=== PATIENT | male | born 1970 | race Caucasian/White ===

== ENCOUNTER 2018-12-27 12:35 | Inpatient (IN) | payer MEDICARE, OTHER ==
[~2018-12-27] VITALS: Ht 177.8 cm; Wt 82.8 kg
[~2018-12-27 12:35] MED LIST: ASPI-817 PO; BENZ1TAB7 PO; CHOL200056 PO; CITA20TA11 PO; DIAZ5TAB4 PO; DIVA-48 PO; HYDR-842 PO; KETO120S3 TOP; MES250 PO; QUET100T PO; QUET100T32 PO; QUET400T4 PO; QUET50TA PO
[2018-12-27] MEDS ORDERED: morphine 4 MG/ML VIAL IV STA (15:40)
[2018-12-27] MEDS ORDERED: ONDANSETRON 4 MG INJ IV STA (15:40)
[2018-12-27] MEDS ORDERED: SOD CHLORIDE 0.9% 1,000 ML IV STA (17:19)
[2018-12-27] MEDS ORDERED: ONDANSETRON 4 MG INJ IV PRN ×2 (17:30→18:30)
[2018-12-27] MEDS ORDERED: ACETAMINOPHEN 325 MG TAB PO PRN ×2 (17:30→18:30)
[2018-12-27] MEDS ORDERED: QUETIAPINE 25 MG TAB NGT PRN (18:30)
[2018-12-27] MEDS ORDERED: hydrOXYzine HCL 25 MG TAB PO PRN (18:30)
[2018-12-27] MEDS ORDERED: NACL 0.9% 3 ML SYG IV SCH (18:30)
[2018-12-27] MEDS: DIVALPROEX (EC) 500 MG TAB PO SCH (19:04)
[2018-12-27] MEDS: QUETIAPINE 100 MG TAB NGT SCH (19:04)
[2018-12-27] MEDS: BENZTROPINE 1 MG TAB NGT SCH (19:05)
[2018-12-27] MEDS: DEXTROSE 5%-0.45% NACL 1,000 ML IV SCH (21:19)
[2018-12-27] MEDS: FAMOTIDINE 20 MG INJ IV SCH (21:19)
[2018-12-27] MEDS: DIAZEPAM 5 MG TAB NGT SCH (21:47)
[2018-12-27] MEDS ORDERED: SOD CHLORIDE 0.9% 1,000 ML IV ONE (22:30)
[2018-12-28] MEDS: morphine 2 MG INJ IV PRN (02:15)
[2018-12-28] MEDS ORDERED: PANTOPRAZOLE 40 MG INJ IV SCH (08:00)
[2018-12-28] MEDS ORDERED: ACETAMINOPHEN 1000MG/100ML IV 100 ML IVPB ONE (08:00)
[2018-12-28] MEDS ORDERED: SOD CHLORIDE 0.9% 1,000 ML IV SCH ×2 (08:00→08:30)
[2018-12-28] MEDS: QUETIAPINE 100 MG TAB NGT SCH ×2 (09:00→20:31)
[2018-12-28] MEDS: BENZTROPINE 1 MG TAB NGT SCH ×2 (09:00→20:31)
[2018-12-28] MEDS: DIVALPROEX (EC) 500 MG TAB PO SCH ×2 (09:00→20:31)
[2018-12-28] MEDS: CITALOPRAM 20 MG TAB NGT SCH (09:00)
[2018-12-28] MEDS: DIAZEPAM 5 MG TAB NGT SCH ×2 (09:00→20:31)
[2018-12-28] MEDS ORDERED: MAGNESIUM SULFATE 2 GM/50 ML 50 ML IVPB ONE ×2 (10:30→16:00)
[2018-12-28] MEDS ORDERED: SOD CHLORIDE 0.9% 1,000 ML IV ONE ×2 (11:00→14:00)
[2018-12-28] MEDS: PIPER-TAZO 3.375 GM IV (PMX) 100 ML IVPB SCH ×3 (11:57→21:38)
[2018-12-28] MEDS: LORAZEPAM 2 MG INJ IV PRN (14:00)
[2018-12-28 16:35] VITALS: BP 98/53; PULSE 115; RESP 18
[2018-12-28 16:45] VITALS: Ht 177.8 cm; Wt 82.8 kg
[2018-12-28] MEDS: DEXTROSE 5%-0.45% NACL 1,000 ML IV SCH ×2 (18:58→19:10)
[2018-12-28 19:52] VITALS: BP 98/54; PULSE 60; RESP 19
[2018-12-28] MEDS: PANTOPRAZOLE IV 80 MG in SOD CHLORIDE 0.9% 100 ML IV SCH (20:21)
[2018-12-28] MEDS: FAMOTIDINE 20 MG INJ IV SCH (20:31)
[2018-12-28] MEDS: METHYLPREDNISOLONE 40 MG INJ IV SCH (21:38)
[2018-12-29] VITALS (7 sets, daily range): BP systolic 91–109; BP diastolic 51–62; PULSE 112–141; RESP 18–29
[2018-12-29] MEDS: DEXTROSE 5%-0.45% NACL 1,000 ML IV SCH ×2 (00:25→10:25)
[2018-12-29] MEDS ORDERED: SOD CHLORIDE 0.9% 500 ML IV ONE (04:30)
[2018-12-29] MEDS ORDERED: LORAZEPAM 2 MG INJ IV ONE (04:30)
[2018-12-29] MEDS: METHYLPREDNISOLONE 40 MG INJ IV SCH ×3 (05:00→21:14)
[2018-12-29] MEDS: PIPER-TAZO 3.375 GM IV (PMX) 100 ML IVPB SCH ×3 (05:08→21:14)
[2018-12-29] MEDS: PANTOPRAZOLE IV 80 MG in SOD CHLORIDE 0.9% 100 ML IV SCH ×2 (06:26→13:30)
[2018-12-29] MEDS: CITALOPRAM 20 MG TAB NGT SCH ×2 (09:00→09:40)
[2018-12-29] MEDS: BENZTROPINE 1 MG TAB NGT SCH ×3 (09:00→20:54)
[2018-12-29] MEDS: DIVALPROEX (EC) 500 MG TAB PO SCH ×3 (09:00→20:54)
[2018-12-29] MEDS: QUETIAPINE 100 MG TAB NGT SCH ×3 (09:00→20:54)
[2018-12-29] MEDS: DIAZEPAM 5 MG TAB NGT SCH ×3 (09:00→20:54)
[2018-12-29] MEDS ORDERED: SOD CHLORIDE 0.9% 1,000 ML IV ONE (10:00)
[2018-12-29] MEDS: LORAZEPAM 2 MG INJ IV PRN (12:54)
[2018-12-29] MEDS: PANTOPRAZOLE IV 80 MG in DEXTROSE 5% 100 ML IV SCH (14:53)
[2018-12-29] MEDS ORDERED: SOD CHLORIDE 0.9% 250 ML IV ONE (15:30)
[2018-12-29] MEDS: DEXTROSE 5% 1,000 ML IV SCH (15:50)
[2018-12-30 00:13] VITALS: BP 97/58; PULSE 105; RESP 20
[2018-12-30] MEDS: PANTOPRAZOLE IV 80 MG in DEXTROSE 5% 100 ML IV SCH ×2 (01:20→12:22)
[2018-12-30 03:29] VITALS: BP 104/62; PULSE 104; RESP 20
[2018-12-30] MEDS: METHYLPREDNISOLONE 40 MG INJ IV SCH ×3 (06:23→21:47)
[2018-12-30] MEDS: PIPER-TAZO 3.375 GM IV (PMX) 100 ML IVPB SCH ×3 (06:24→21:49)
[2018-12-30 07:36] VITALS: BP 100/56; PULSE 89; RESP 19
[2018-12-30] MEDS: BENZTROPINE 1 MG TAB NGT SCH ×2 (08:16→21:48)
[2018-12-30] MEDS: QUETIAPINE 100 MG TAB NGT SCH ×2 (08:16→21:48)
[2018-12-30] MEDS: CITALOPRAM 20 MG TAB NGT SCH (08:16)
[2018-12-30] MEDS: DEXTROSE 5% 1,000 ML IV SCH ×3 (08:16→19:17)
[2018-12-30] MEDS: DIVALPROEX (EC) 500 MG TAB PO SCH (08:17)
[2018-12-30] MEDS: DIAZEPAM 5 MG TAB NGT SCH ×2 (08:17→21:48)
[2018-12-30 11:50] VITALS: BP 101/58; PULSE 89; RESP 18
[2018-12-30] MEDS ORDERED: IOHEXOL 300MG/ML 150 ML BTL ONE ×2 (13:23)
[2018-12-30 16:02] VITALS: BP 105/61; PULSE 98; RESP 20
[2018-12-30] MEDS: PANTOPRAZOLE IV 80 MG in SOD CHLORIDE 0.9% 100 ML IV SCH (16:57)
[2018-12-30] MEDS ORDERED: PANTOPRAZOLE 40 MG INJ IV SCH (18:00)
[2018-12-30 19:54] VITALS: BP 104/67; PULSE 98; RESP 20
[2018-12-30] MEDS: DIVALPROEX SPRINKLE 125 MG CAP PO SCH (21:46)
[2018-12-31] VITALS (16 sets, daily range): BP systolic 101–118; BP diastolic 57–77; PULSE 89–100; RESP 17–21
[2018-12-31] MEDS: PANTOPRAZOLE IV 80 MG in SOD CHLORIDE 0.9% 100 ML IV SCH ×3 (03:34→21:00)
[2018-12-31] MEDS: DEXTROSE 5% 1,000 ML IV SCH (05:38)
[2018-12-31] MEDS: METHYLPREDNISOLONE 40 MG INJ IV SCH ×3 (05:38→22:33)
[2018-12-31] MEDS: PIPER-TAZO 3.375 GM IV (PMX) 100 ML IVPB SCH ×3 (05:38→22:34)
[2018-12-31] MEDS ORDERED: EPHEDrine 25 MG/5 ML SYG ONE (07:00)
[2018-12-31] MEDS: DIAZEPAM 5 MG TAB NGT SCH ×2 (08:05→22:33)
[2018-12-31] MEDS: CITALOPRAM 20 MG TAB NGT SCH (08:05)
[2018-12-31] MEDS: DIVALPROEX SPRINKLE 125 MG CAP PO SCH ×2 (08:05→22:34)
[2018-12-31] MEDS: QUETIAPINE 100 MG TAB NGT SCH ×2 (08:05→22:33)
[2018-12-31] MEDS: BENZTROPINE 1 MG TAB NGT SCH ×2 (08:05→22:33)
[2018-12-31] MEDS: BALSAM PERU/CASTOR OIL 60 GM TUBE TOP SCH ×2 (15:00→22:35)
[2018-12-31] MEDS ORDERED: ROPIVACAINE 0.5 % 30 ML VIAL ONE (15:08)
[2018-12-31] MEDS ORDERED: ONDANSETRON 4 MG INJ ONE (15:08)
[2018-12-31] MEDS ORDERED: METOCLOPRAMIDE 10 MG INJ ONE (15:08)
[2018-12-31] MEDS ORDERED: PROPOFOL 20 ML ONE (15:08)
[2018-12-31] MEDS ORDERED: ROCURONIUM 50 MG INJ ONE ×2 (15:08→16:17)
[2018-12-31] MEDS ORDERED: MIDAZOLAM 1 MG/ML 2 ML INJ ONE (15:12)
[2018-12-31] MEDS ORDERED: PHENYLephrine (100 MCG/ML) 10ML SYG ONE (16:09)
[2018-12-31] MEDS ORDERED: SUCCINYLCHOLINE CHLORIDE 100 MG/5 ML SYG IV ONE (16:10)
[2018-12-31] MEDS ORDERED: HYDROmorphONE 2 MG/ML SYG ONE (16:47)
[2018-12-31] MEDS ORDERED: ALBUMIN HUMAN 5% 250 ML ONE (17:50)
[2018-12-31] MEDS ORDERED: NEOSTIGMINE 3 MG/3 ML SYRINGE ONE (18:20)
[2018-12-31] MEDS ORDERED: GLYCOPYRROLATE 0.4 MG INJ ONE (18:20)
[2018-12-31] MEDS ORDERED: MIDAZOLAM 1 MG/ML 2 ML INJ IV PRN (18:30)
[2018-12-31] MEDS ORDERED: DIPHENHYDRAMINE 50 MG INJ IV PRN ×2 (18:30→19:00)
[2018-12-31] MEDS ORDERED: FENTAnyl 50 MCG/ML VIAL IV PRN ×2 (18:30)
[2018-12-31] MEDS ORDERED: HYDROmorphONE 1 MG/5 ML IV SYRINGE IV PRN ×3 (18:30)
[2018-12-31] MEDS ORDERED: ONDANSETRON 4 MG INJ IV PRN ×2 (18:30→19:00)
[2018-12-31] MEDS ORDERED: MEPERIDINE 25 MG INJ IV PRN (18:30)
[2018-12-31] MEDS ORDERED: EPHEDrine 25 MG/5 ML SYG IV PRN (18:30)
[2018-12-31] MEDS ORDERED: LACTATED RINGER'S 1,000 ML IV ONE (18:42)
[2018-12-31] MEDS ORDERED: HYDROmorphONE 0.5 MG/0.5 ML SYG IV PRN (19:00)
[2018-12-31] MEDS ORDERED: METOCLOPRAMIDE 10 MG INJ IV PRN (19:00)
[2018-12-31] MEDS ORDERED: KETOROLAC 30 MG INJ IV PRN (22:00)
[2018-12-31] MEDS: D5-NS + KCL 20 MEQ 1,000 ML IV SCH (22:35)
[2018-12-31] MEDS: HEPARIN 5,000 UNIT/1 ML VIAL SC SCH (22:48)
[2019-01-01] VITALS: BP 101/54; PULSE 75; RESP 19
[2019-01-01 04:00] VITALS: BP 109/56; PULSE 74; RESP 18
[2019-01-01] MEDS: PANTOPRAZOLE IV 80 MG in SOD CHLORIDE 0.9% 100 ML IV SCH ×2 (04:34→04:36)
[2019-01-01] MEDS: D5-NS + KCL 20 MEQ 1,000 ML IV SCH (04:36)
[2019-01-01] MEDS: METHYLPREDNISOLONE 40 MG INJ IV SCH ×3 (06:34→22:53)
[2019-01-01] MEDS: PIPER-TAZO 3.375 GM IV (PMX) 100 ML IVPB SCH ×3 (06:35→22:52)
[2019-01-01 07:40] VITALS: BP 105/56; PULSE 79; RESP 18
[2019-01-01] MEDS: CITALOPRAM 20 MG TAB NGT SCH (09:47)
[2019-01-01] MEDS: BENZTROPINE 1 MG TAB NGT SCH ×2 (09:47→22:53)
[2019-01-01] MEDS: D5W-0.45 NACL + KCL 20 MEQ 1,000 ML IV SCH ×2 (09:47→22:54)
[2019-01-01] MEDS: QUETIAPINE 100 MG TAB NGT SCH ×2 (09:47→22:53)
[2019-01-01] MEDS: DIAZEPAM 5 MG TAB NGT SCH ×2 (09:48→22:53)
[2019-01-01] MEDS: DIVALPROEX SPRINKLE 125 MG CAP PO SCH ×2 (09:48→22:54)
[2019-01-01] MEDS: BALSAM PERU/CASTOR OIL 60 GM TUBE TOP SCH ×2 (09:49→22:53)
[2019-01-01] MEDS: HEPARIN 5,000 UNIT/1 ML VIAL SC SCH ×2 (09:59→23:54)
[2019-01-01 15:59] VITALS: BP 99/50; PULSE 100; RESP 18
[2019-01-01] MEDS: morphine 2 MG INJ IV PRN (18:59)
[2019-01-01 20:00] VITALS: BP 109/62; PULSE 95; RESP 18
[2019-01-01 23:56] VITALS: BP 94/53; PULSE 100; RESP 19
[2019-01-02] MEDS: PANTOPRAZOLE IV 80 MG in SOD CHLORIDE 0.9% 100 ML IV SCH ×2 (03:00→13:10)
[2019-01-02 04:00] VITALS: BP 100/57; RESP 20
[2019-01-02] MEDS: PIPER-TAZO 3.375 GM IV (PMX) 100 ML IVPB SCH ×3 (05:41→23:08)
[2019-01-02] MEDS: METHYLPREDNISOLONE 40 MG INJ IV SCH ×3 (05:41→23:05)
[2019-01-02 07:11] VITALS: BP 97/54; RESP 18
[2019-01-02] MEDS: DIAZEPAM 5 MG TAB NGT SCH ×2 (08:56→23:13)
[2019-01-02] MEDS: BENZTROPINE 1 MG TAB NGT SCH ×2 (08:57→23:07)
[2019-01-02] MEDS: DIVALPROEX SPRINKLE 125 MG CAP PO SCH ×2 (08:57→23:07)
[2019-01-02] MEDS: CITALOPRAM 20 MG TAB NGT SCH (08:57)
[2019-01-02] MEDS: QUETIAPINE 100 MG TAB NGT SCH ×2 (08:57→23:07)
[2019-01-02] MEDS: HEPARIN 5,000 UNIT/1 ML VIAL SC SCH ×2 (08:59→23:22)
[2019-01-02] MEDS: BALSAM PERU/CASTOR OIL 60 GM TUBE TOP SCH ×2 (09:33→23:08)
[2019-01-02 11:19] VITALS: BP 96/56; RESP 18
[2019-01-02] MEDS: D5W-0.45 NACL + KCL 20 MEQ 1,000 ML IV SCH (13:12)
[2019-01-02 15:35] VITALS: BP 102/59; RESP 17
[2019-01-02] MEDS: PANTOPRAZOLE 40 MG INJ IV SCH (18:03)
[2019-01-02 20:08] VITALS: BP 110/59; PULSE 88; RESP 18
[2019-01-03 00:02] VITALS: BP 110/60; PULSE 92; RESP 18
[2019-01-03] MEDS: D5W-0.45 NACL + KCL 20 MEQ 1,000 ML IV SCH ×2 (01:00→06:29)
[2019-01-03 04:00] VITALS: BP 105/62; PULSE 90; RESP 18
[2019-01-03] MEDS: METHYLPREDNISOLONE 40 MG INJ IV SCH ×3 (06:28→21:25)
[2019-01-03] MEDS: PIPER-TAZO 3.375 GM IV (PMX) 100 ML IVPB SCH ×3 (06:29→21:21)
[2019-01-03] MEDS: PANTOPRAZOLE 40 MG INJ IV SCH ×2 (06:29→17:13)
[2019-01-03 07:58] VITALS: BP 107/60; PULSE 91; RESP 22
[2019-01-03] MEDS: DIAZEPAM 5 MG TAB NGT SCH ×2 (10:45→21:25)
[2019-01-03] MEDS: DIVALPROEX SPRINKLE 125 MG CAP PO SCH ×2 (10:46→21:25)
[2019-01-03] MEDS: BENZTROPINE 1 MG TAB NGT SCH ×2 (10:46→21:25)
[2019-01-03] MEDS: QUETIAPINE 100 MG TAB NGT SCH ×2 (10:47→21:25)
[2019-01-03] MEDS: BALSAM PERU/CASTOR OIL 60 GM TUBE TOP SCH ×2 (10:47→21:26)
[2019-01-03] MEDS: CITALOPRAM 20 MG TAB NGT SCH (10:47)
[2019-01-03] MEDS: HEPARIN 5,000 UNIT/1 ML VIAL SC SCH ×2 (10:50→22:01)
[2019-01-03 11:38] VITALS: BP 102/55; PULSE 89; RESP 22
[2019-01-03 16:00] VITALS: BP 112/62; PULSE 92; RESP 22
[2019-01-03 20:00] VITALS: BP 107/57; PULSE 84; RESP 19
[2019-01-04] VITALS: BP 105/61; PULSE 93; RESP 18
[2019-01-04] MEDS: D5W-0.45 NACL + KCL 20 MEQ 1,000 ML IV SCH ×3 (02:32→22:40)
[2019-01-04 04:00] VITALS: BP 114/62; PULSE 78; RESP 18
[2019-01-04] MEDS: PANTOPRAZOLE 40 MG INJ IV SCH (05:17)
[2019-01-04] MEDS: PIPER-TAZO 3.375 GM IV (PMX) 100 ML IVPB SCH ×3 (05:17→22:18)
[2019-01-04] MEDS: METHYLPREDNISOLONE 40 MG INJ IV SCH (05:17)
[2019-01-04 07:25] VITALS: BP 111/62; PULSE 94; RESP 20
[2019-01-04] MEDS: QUETIAPINE 100 MG TAB NGT SCH ×2 (10:49→22:19)
[2019-01-04] MEDS: CITALOPRAM 20 MG TAB NGT SCH (10:49)
[2019-01-04] MEDS: BENZTROPINE 1 MG TAB NGT SCH ×2 (10:49→22:20)
[2019-01-04] MEDS: DIVALPROEX SPRINKLE 125 MG CAP PO SCH ×2 (10:50→22:19)
[2019-01-04] MEDS: HEPARIN 5,000 UNIT/1 ML VIAL SC SCH ×2 (11:00→22:24)
[2019-01-04 11:40] VITALS: BP 104/59; PULSE 98; RESP 20
[2019-01-04] MEDS: BALSAM PERU/CASTOR OIL 60 GM TUBE TOP SCH ×2 (14:44→22:19)
[2019-01-04] MEDS: DIAZEPAM 5 MG TAB NGT SCH ×2 (14:45→22:18)
[2019-01-04] MEDS: MESALAMINE (SR) 250 MG CAP PO SCH ×3 (14:45→22:19)
[2019-01-04 15:10] VITALS: BP 97/53; PULSE 102; RESP 20
[2019-01-04] MEDS: LANSOPRAZOLE 30 MG CAP NGT SCH (19:04)
[2019-01-04 20:00] VITALS: BP 109/58; PULSE 84; RESP 19
[2019-01-04] MEDS: predniSONE 10 MG TAB PO SCH (22:19)
[2019-01-05] VITALS (34 sets, daily range): BP systolic 66–117; BP diastolic 31–65; PULSE 89–152; RESP 16–31
[2019-01-05] MEDS: PIPER-TAZO 3.375 GM IV (PMX) 100 ML IVPB SCH (06:00)
[2019-01-05] MEDS: LANSOPRAZOLE 30 MG CAP NGT SCH ×2 (06:11→18:00)
[2019-01-05] MEDS ORDERED: IOHEXOL 300MG/ML 150 ML BTL ONE (10:58)
[2019-01-05] MEDS ORDERED: SOD CHLORIDE 0.9% 100 ML ONE (10:58)
[2019-01-05] MEDS ORDERED: VANCOMYCIN IV PER PHARMACY XX SCH (12:00)
[2019-01-05] MEDS ORDERED: PHENYLephrine (100 MCG/ML) 10ML SYG ONE (13:00)
[2019-01-05] MEDS ORDERED: EPHEDrine 25 MG/5 ML SYG ONE (13:00)
[2019-01-05] MEDS ORDERED: GLYCOPYRROLATE 0.4 MG INJ ONE (13:33)
[2019-01-05] MEDS ORDERED: MEPERIDINE 100 MG INJ ONE (13:33)
[2019-01-05] MEDS ORDERED: PROPOFOL 20 ML ONE (13:33)
[2019-01-05] MEDS ORDERED: ROCURONIUM 50 MG INJ ONE ×2 (13:33→17:13)
[2019-01-05] MEDS ORDERED: LIDOCAINE 2% (SDV) 5 ML INJ ONE (13:33)
[2019-01-05] MEDS ORDERED: NEOSTIGMINE 3 MG/3 ML SYRINGE ONE (13:33)
[2019-01-05] MEDS ORDERED: SUCCINYLCHOLINE CHLORIDE 100 MG/5 ML SYG IV ONE (13:33)
[2019-01-05] MEDS: morphine 2 MG INJ IV PRN ×2 (13:49→18:10)
[2019-01-05] MEDS ORDERED: VANCOMYCIN 1.5 GM/NS 250 ML 250 ML IVPB ONE (14:00)
[2019-01-05] MEDS: BALSAM PERU/CASTOR OIL 60 GM TUBE TOP SCH ×2 (17:00→22:47)
[2019-01-05] MEDS ORDERED: LACTATED RINGER'S 1,000 ML IV SCH (17:01)
[2019-01-05] MEDS ORDERED: LACTATED RINGER'S 500 ML IV ONE (17:01)
[2019-01-05] MEDS: D5W-0.45 NACL + KCL 20 MEQ 1,000 ML IV SCH (17:08)
[2019-01-05] MEDS ORDERED: ALBUMIN HUMAN 25% 100 ML IV PRN (18:00)
[2019-01-05] MEDS ORDERED: NORepinephrine 8MG/250 ML (PMX 250 ML IV SCH (18:00)
[2019-01-05] MEDS ORDERED: SOD CHLORIDE 0.9% 1,000 ML IV ONE (18:00)
[2019-01-05] MEDS: SOD CHLORIDE 0.9% 1,000 ML IV SCH ×2 (18:11→18:51)
[2019-01-05] MEDS ORDERED: FENTAnyl (DRIP) 1000 mcg/100mL 100 ML IV SCH (18:30)
[2019-01-05] MEDS: LORAZEPAM 2 MG INJ IV PRN (18:45)
[2019-01-05] MEDS: MEROPENEM 1 GM/50ML(PMX) 50 ML IVPB SCH ×2 (19:05→22:22)
[2019-01-05] MEDS: CITALOPRAM 20 MG TAB NGT SCH (19:40)
[2019-01-05] MEDS: BENZTROPINE 1 MG TAB NGT SCH (19:41)
[2019-01-05] MEDS: MESALAMINE (SR) 250 MG CAP PO SCH ×3 (19:41→19:44)
[2019-01-05] MEDS: predniSONE 10 MG TAB PO SCH (19:41)
[2019-01-05] MEDS: DIVALPROEX SPRINKLE 125 MG CAP PO SCH (19:42)
[2019-01-05] MEDS: DIAZEPAM 5 MG TAB NGT SCH (19:42)
[2019-01-05] MEDS: QUETIAPINE 100 MG TAB NGT SCH (19:42)
[2019-01-05] MEDS: FENTAnyl (DRIP) 1000 mcg/100mL 100 ML IV SCH (19:52)
[2019-01-05] MEDS: HEPARIN 5,000 UNIT/1 ML VIAL SC SCH (20:51)
[2019-01-05] MEDS ORDERED: ACETAMINOPHEN 1000MG/100ML IV 100 ML IVPB ONE (23:30)
[2019-01-06] VITALS (100 sets, daily range): BP systolic 83–137; BP diastolic 29–53; PULSE 66–134; RESP 11–39
[2019-01-06] MEDS: PHENYLephrine 40 MG in DEXTROSE 5% 246 ML IV SCH ×6 (00:28→20:56)
[2019-01-06] MEDS ORDERED: SOD CHLORIDE 0.9% 500 ML IV ONE ×2 (01:30)
[2019-01-06] MEDS: SOD CHLORIDE 0.9% 1,000 ML IV SCH ×2 (04:50→17:19)
[2019-01-06] MEDS: VANCOMYCIN 1.25 GM/NS 250 ML 250 ML IVPB SCH ×2 (04:52→17:19)
[2019-01-06] MEDS: PANTOPRAZOLE 40 MG INJ IV SCH (06:09)
[2019-01-06] MEDS: MEROPENEM 1 GM/50ML(PMX) 50 ML IVPB SCH ×3 (06:09→22:26)
[2019-01-06] MEDS: BALSAM PERU/CASTOR OIL 60 GM TUBE TOP SCH ×2 (07:55→21:10)
[2019-01-06] MEDS: FENTAnyl (DRIP) 1000 mcg/100mL 100 ML IV SCH ×2 (08:04→19:16)
[2019-01-06] MEDS: MIDAZOLAM (DRIP) 50 mg/50 mL 50 ML IV SCH (10:05)
[2019-01-06] MEDS: HEPARIN 5,000 UNIT/1 ML VIAL SC SCH (10:19)
[2019-01-06] MEDS: ACCU-CHEK XX SCH ×3 (11:50→21:08)
[2019-01-06] MEDS: ACETAMINOPHEN 1000MG/100ML IV 100 ML IVPB PRN ×2 (12:04→13:30)
[2019-01-06] MEDS ORDERED: HEPARIN 1000 UNITS/ML 10 ML INJ IV ONE (13:00)
[2019-01-06] MEDS ORDERED: HEPARIN 25000 UNITS/250 ML 250 ML IV SCH (13:00)
[2019-01-06] MEDS ORDERED: HEPARIN 1000 UNITS/ML 10 ML INJ IV PRN ×3 (13:00→13:30)
[2019-01-06] MEDS ORDERED: NORepinephrine 32 MG in DEXTROSE 5% 218 ML IV SCH ×4 (15:00)
[2019-01-06] MEDS: VASOPRESSIN 60 UNIT in DEXTROSE 5% 57 ML IV SCH (17:28)
[2019-01-06] MEDS: TPN 1,000 ML IV SCH (17:36)
[2019-01-06] MEDS ORDERED: MAGNESIUM SULFATE 2 GM/50 ML 50 ML IVPB ONE (22:30)
[2019-01-06] MEDS ORDERED: DEXTROSE 50% 50 ML SYRINGE IV PRN ×2 (22:30)
[2019-01-06] MEDS ORDERED: GLUCOSE GEL 15 GRAM TUBE PO PRN ×2 (22:30)
[2019-01-06] MEDS ORDERED: GLUCOSE GEL 15 GRAM TUBE BUCCAL PRN (22:30)
[2019-01-06] MEDS ORDERED: GLUCAGON 1 MG INJ IM PRN (22:30)
[2019-01-06] MEDS: PHENYLephrine 80 MG in DEXTROSE 5% 242 ML IV SCH (22:59)
[2019-01-07] VITALS (89 sets, daily range): BP systolic 98–192; BP diastolic 31–77; PULSE 50–91; RESP 13–27
[2019-01-07] MEDS: INSULIN ASPART [NOVOLOG] 3 ML PEN SC SCH ×6 (01:14→20:22)
[2019-01-07] MEDS: PHENYLephrine 80 MG in DEXTROSE 5% 242 ML IV SCH ×3 (03:15→14:35)
[2019-01-07] MEDS: MIDAZOLAM (DRIP) 50 mg/50 mL 50 ML IV SCH ×2 (04:28→22:30)
[2019-01-07] MEDS: VASOPRESSIN 60 UNIT in DEXTROSE 5% 57 ML IV SCH ×2 (04:34→16:00)
[2019-01-07] MEDS: VANCOMYCIN 1.25 GM/NS 250 ML 250 ML IVPB SCH ×3 (04:39→20:22)
[2019-01-07] MEDS: TPN 1,000 ML IV SCH ×2 (05:37→20:21)
[2019-01-07] MEDS: PANTOPRAZOLE 40 MG INJ IV SCH (05:37)
[2019-01-07] MEDS: MEROPENEM 1 GM/50ML(PMX) 50 ML IVPB SCH ×3 (05:37→22:27)
[2019-01-07] MEDS: FENTAnyl (DRIP) 1000 mcg/100mL 100 ML IV SCH ×3 (05:54→19:13)
[2019-01-07] MEDS: BALSAM PERU/CASTOR OIL 60 GM TUBE TOP SCH ×2 (08:42→20:22)
[2019-01-07] MEDS ORDERED: SODIUM PHOSPHATE 20 MEQ in SOD CHLORIDE 0.9% 250 ML IVPB ONE (10:00)
[2019-01-07] MEDS ORDERED: NORepinephrine 32 MG in DEXTROSE 5% 218 ML IV SCH (10:00)
[2019-01-07] MEDS ORDERED: POTASSIUM PHOSPHATE 30 MM in SOD CHLORIDE 0.9% 250 ML IVPB ONE (10:30)
[2019-01-07] MEDS ORDERED: NORepinephrine 8MG/250 ML (PMX 250 ML ONE (11:37)
[2019-01-07] MEDS: NORepinephrine 8MG/250 ML (PMX 250 ML IV SCH ×2 (12:14→20:24)
[2019-01-07] MEDS: SOD CHLORIDE 0.9% 1,000 ML IV SCH (18:28)
[2019-01-08] VITALS (104 sets, daily range): BP systolic 90–153; BP diastolic 37–66; PULSE 48–98; RESP 11–30
[2019-01-08] MEDS: INSULIN ASPART [NOVOLOG] 3 ML PEN SC SCH ×6 (01:40→20:39)
[2019-01-08] MEDS: VASOPRESSIN 60 UNIT in DEXTROSE 5% 57 ML IV SCH ×2 (01:55→16:00)
[2019-01-08] MEDS: VANCOMYCIN 1.25 GM/NS 250 ML 250 ML IVPB SCH (04:41)
[2019-01-08] MEDS: NORepinephrine 8MG/250 ML (PMX 250 ML IV SCH ×2 (04:46→18:16)
[2019-01-08] MEDS: PANTOPRAZOLE 40 MG INJ IV SCH (05:28)
[2019-01-08] MEDS: MEROPENEM 1 GM/50ML(PMX) 50 ML IVPB SCH (05:28)
[2019-01-08] MEDS: FENTAnyl (DRIP) 1000 mcg/100mL 100 ML IV SCH ×2 (05:40→19:47)
[2019-01-08] MEDS: TPN 1,000 ML IV SCH ×2 (08:19→20:29)
[2019-01-08] MEDS: BALSAM PERU/CASTOR OIL 60 GM TUBE TOP SCH ×2 (08:26→21:39)
[2019-01-08] MEDS ORDERED: MAGNESIUM SULFATE 2 GM/50 ML 50 ML IVPB ONE (09:30)
[2019-01-08] MEDS ORDERED: POTASSIUM PHOSPHATE 30 MM in SOD CHLORIDE 0.9% 250 ML IVPB ONE (10:00)
[2019-01-08] MEDS ORDERED: DEXMEDETOMIDINE IN DEXTROSE 5% 50 ML IV SCH (12:00)
[2019-01-08] MEDS: PIPER-TAZO 3.375 GM IV (PMX) 100 ML IVPB SCH ×3 (13:10→23:45)
[2019-01-08] MEDS: DEXMEDETOMIDINE IN DEXTROSE 5% 50 ML IV SCH ×3 (13:46→20:42)
[2019-01-08] MEDS: SOD CHLORIDE 0.9% 1,000 ML IV SCH (16:15)
[2019-01-08] MEDS: morphine 2 MG INJ IV PRN (20:53)
[2019-01-09] VITALS (75 sets, daily range): BP systolic 97–135; BP diastolic 42–71; PULSE 53–85; RESP 9–26
[2019-01-09] MEDS: morphine 2 MG INJ IV PRN ×4 (00:50→23:39)
[2019-01-09] MEDS: INSULIN ASPART [NOVOLOG] 3 ML PEN SC SCH ×6 (00:51→20:38)
[2019-01-09] MEDS: DEXMEDETOMIDINE IN DEXTROSE 5% 50 ML IV SCH ×4 (01:06→10:59)
[2019-01-09] MEDS: LORAZEPAM 2 MG INJ IV PRN (02:27)
[2019-01-09] MEDS: VASOPRESSIN 60 UNIT in DEXTROSE 5% 57 ML IV SCH ×2 (04:00→16:00)
[2019-01-09] MEDS: FENTAnyl (DRIP) 1000 mcg/100mL 100 ML IV SCH (05:12)
[2019-01-09] MEDS: PANTOPRAZOLE 40 MG INJ IV SCH (05:30)
[2019-01-09] MEDS: PIPER-TAZO 3.375 GM IV (PMX) 100 ML IVPB SCH ×3 (05:30→19:09)
[2019-01-09] MEDS ORDERED: SODIUM PHOSPHATE 20 MEQ in SOD CHLORIDE 0.9% 250 ML IVPB ONE (09:00)
[2019-01-09] MEDS: BALSAM PERU/CASTOR OIL 60 GM TUBE TOP SCH ×2 (09:25→20:37)
[2019-01-09] MEDS: TPN 1,000 ML IV SCH ×2 (10:03→23:39)
[2019-01-09] MEDS ORDERED: FUROSEMIDE 20 MG INJ IV ONE (12:30)
[2019-01-09] MEDS: SOD CHLORIDE 0.9% 1,000 ML IV SCH (18:57)
[2019-01-10] VITALS (20 sets, daily range): BP systolic 98–136; BP diastolic 46–77; PULSE 70–105; RESP 10–28
[2019-01-10] MEDS: PIPER-TAZO 3.375 GM IV (PMX) 100 ML IVPB SCH ×5 (00:47→23:41)
[2019-01-10] MEDS: INSULIN ASPART [NOVOLOG] 3 ML PEN SC SCH ×6 (00:48→22:27)
[2019-01-10] MEDS: VASOPRESSIN 60 UNIT in DEXTROSE 5% 57 ML IV SCH (03:31)
[2019-01-10] MEDS ORDERED: MAGNESIUM SULFATE 2 GM/50 ML 50 ML IVPB ONE (05:30)
[2019-01-10] MEDS ORDERED: POTASSIUM CHLORIDE 50 ML IVPB ONE (05:30)
[2019-01-10] MEDS: PANTOPRAZOLE 40 MG INJ IV SCH (05:33)
[2019-01-10] MEDS: BALSAM PERU/CASTOR OIL 60 GM TUBE TOP SCH (08:39)
[2019-01-10] MEDS: morphine 2 MG INJ IV PRN ×2 (09:34→15:41)
[2019-01-10] MEDS: TPN 1,000 ML IV SCH (12:01)
[2019-01-10] MEDS: SOD CHLORIDE 0.9% 1,000 ML IV SCH (15:37)
[2019-01-10] MEDS: BENZTROPINE 1 MG TAB NGT SCH (22:17)
[2019-01-10] MEDS: DIAZEPAM 5 MG TAB NGT SCH (22:17)
[2019-01-10] MEDS: QUETIAPINE 100 MG TAB NGT SCH (22:17)
[2019-01-10] MEDS: DIVALPROEX SPRINKLE 125 MG CAP PO SCH (22:18)
[2019-01-11] MEDS: INSULIN ASPART [NOVOLOG] 3 ML PEN SC SCH ×6 (01:00→20:23)
[2019-01-11] MEDS: BALSAM PERU/CASTOR OIL 60 GM TUBE TOP SCH ×3 (01:20→20:32)
[2019-01-11] MEDS: TPN 1,000 ML IV SCH ×2 (01:52→17:07)
[2019-01-11] MEDS: SOD CHLORIDE 0.9% 1,000 ML IV SCH ×2 (04:22→17:00)
[2019-01-11 04:45] VITALS: BP 108/57; PULSE 59; RESP 18
[2019-01-11] MEDS: PANTOPRAZOLE 40 MG INJ IV SCH (05:50)
[2019-01-11] MEDS: PIPER-TAZO 3.375 GM IV (PMX) 100 ML IVPB SCH ×4 (05:50→23:27)
[2019-01-11 07:54] VITALS: BP 112/65; PULSE 80
[2019-01-11] MEDS: DIAZEPAM 5 MG TAB NGT SCH ×2 (09:00→20:32)
[2019-01-11] MEDS ORDERED: MAGNESIUM SULFATE 2 GM/50 ML 50 ML IVPB ONE (10:30)
[2019-01-11] MEDS ORDERED: POTASSIUM CHLORIDE 20 MEQ POWDER FOR ORAL SOLN PO ONE (10:30)
[2019-01-11] MEDS: QUETIAPINE 100 MG TAB PO SCH ×2 (10:30→20:32)
[2019-01-11] MEDS: BENZTROPINE 1 MG TAB PO SCH ×2 (10:30→20:32)
[2019-01-11] MEDS ORDERED: QUETIAPINE 25 MG TAB PO PRN (10:30)
[2019-01-11 12:05] VITALS: BP 109/57; PULSE 79; RESP 24
[2019-01-11] MEDS: DIVALPROEX SPRINKLE 125 MG CAP PO SCH ×2 (13:38→20:28)
[2019-01-11 16:25] VITALS: BP 139/72; PULSE 99; RESP 24
[2019-01-11 20:33] VITALS: BP 119/61; PULSE 87; RESP 19
[2019-01-12 00:10] VITALS: BP 118/72; PULSE 18; PULSE 78; RESP 18
[2019-01-12] MEDS: INSULIN ASPART [NOVOLOG] 3 ML PEN SC SCH ×6 (01:00→20:30)
[2019-01-12 04:05] VITALS: BP 102/57; PULSE 96; RESP 18
[2019-01-12] MEDS: PANTOPRAZOLE 40 MG INJ IV SCH (05:53)
[2019-01-12] MEDS: TPN 1,000 ML IV SCH ×3 (05:53→19:29)
[2019-01-12] MEDS: PIPER-TAZO 3.375 GM IV (PMX) 100 ML IVPB SCH ×3 (05:53→17:33)
[2019-01-12 07:39] VITALS: BP 92/51; PULSE 93; RESP 17
[2019-01-12] MEDS ORDERED: BISACODYL 10 MG SUPP PR PRN (09:00)
[2019-01-12] MEDS: QUETIAPINE 100 MG TAB PO SCH ×2 (09:12→20:09)
[2019-01-12] MEDS: DIAZEPAM 5 MG TAB PO SCH ×2 (09:13→20:10)
[2019-01-12] MEDS: BENZTROPINE 1 MG TAB PO SCH ×2 (09:13→20:09)
[2019-01-12] MEDS: CITALOPRAM 20 MG TAB PO SCH (09:13)
[2019-01-12 11:03] VITALS: BP 94/53; PULSE 96; RESP 18
[2019-01-12] MEDS: DIVALPROEX SPRINKLE 125 MG CAP PO SCH ×2 (11:09→21:13)
[2019-01-12] MEDS: BALSAM PERU/CASTOR OIL 60 GM TUBE TOP SCH ×2 (11:09→21:13)
[2019-01-12 15:24] VITALS: BP 100/57; PULSE 104; RESP 18
[2019-01-12] MEDS: SOD CHLORIDE 0.9% 1,000 ML IV SCH (16:00)
[2019-01-12] MEDS ORDERED: INSULIN ASPART [NOVOLOG] 3 ML PEN SC SCH (17:25)
[2019-01-12 19:50] VITALS: BP 107/64; PULSE 99; RESP 18
[2019-01-13] VITALS: BP 115/60; PULSE 87; RESP 18
[2019-01-13] MEDS: PIPER-TAZO 3.375 GM IV (PMX) 100 ML IVPB SCH ×5 (00:09→23:40)
[2019-01-13 04:00] VITALS: BP 91/55; PULSE 100; RESP 18
[2019-01-13] MEDS: PANTOPRAZOLE 40 MG INJ IV SCH (05:39)
[2019-01-13 07:30] VITALS: BP 95/51; PULSE 103; RESP 18
[2019-01-13] MEDS: INSULIN ASPART [NOVOLOG] 3 ML PEN SC SCH ×4 (07:55→20:08)
[2019-01-13] MEDS: DIVALPROEX SPRINKLE 125 MG CAP PO SCH ×2 (08:41→20:08)
[2019-01-13] MEDS: QUETIAPINE 100 MG TAB PO SCH ×2 (08:42→20:09)
[2019-01-13] MEDS: BENZTROPINE 1 MG TAB PO SCH ×2 (08:42→20:09)
[2019-01-13] MEDS: DIAZEPAM 5 MG TAB PO SCH ×2 (08:42→20:08)
[2019-01-13] MEDS: CITALOPRAM 20 MG TAB PO SCH (08:42)
[2019-01-13] MEDS: BALSAM PERU/CASTOR OIL 60 GM TUBE TOP SCH ×2 (08:43→20:08)
[2019-01-13] MEDS: TPN 1,000 ML IV SCH ×3 (10:36→23:40)
[2019-01-13 11:05] VITALS: BP 104/55; PULSE 120; RESP 19
[2019-01-13] MEDS ORDERED: SOD CHLORIDE 0.9% 500 ML IV ONE (12:30)
[2019-01-13 15:20] VITALS: BP 98/57; PULSE 107; RESP 18
[2019-01-13] MEDS: SOD CHLORIDE 0.9% 1,000 ML IV SCH ×2 (15:42→23:40)
[2019-01-13 19:26] VITALS: BP 109/60; PULSE 93; RESP 21
[2019-01-14] VITALS (12 sets, daily range): BP systolic 94–109; BP diastolic 54–63; PULSE 86–110; RESP 17–21
[2019-01-14] MEDS: PIPER-TAZO 3.375 GM IV (PMX) 100 ML IVPB SCH ×3 (05:11→18:43)
[2019-01-14] MEDS: PANTOPRAZOLE 40 MG INJ IV SCH (05:11)
[2019-01-14] MEDS: INSULIN ASPART [NOVOLOG] 3 ML PEN SC SCH ×4 (07:55→20:09)
[2019-01-14] MEDS: QUETIAPINE 100 MG TAB PO SCH ×2 (08:01→20:04)
[2019-01-14] MEDS: DIVALPROEX SPRINKLE 125 MG CAP PO SCH ×2 (08:02→20:04)
[2019-01-14] MEDS: BENZTROPINE 1 MG TAB PO SCH ×2 (08:02→20:04)
[2019-01-14] MEDS: CITALOPRAM 20 MG TAB PO SCH (08:02)
[2019-01-14] MEDS: BALSAM PERU/CASTOR OIL 60 GM TUBE TOP SCH ×2 (08:03→20:05)
[2019-01-14] MEDS: DIAZEPAM 5 MG TAB PO SCH ×2 (08:06→20:05)
[2019-01-15] VITALS (12 sets, daily range): BP systolic 91–107; BP diastolic 50–62; PULSE 82–108; RESP 16–20
[2019-01-15] MEDS: PIPER-TAZO 3.375 GM IV (PMX) 100 ML IVPB SCH ×4 (00:26→17:23)
[2019-01-15] MEDS: PANTOPRAZOLE 40 MG INJ IV SCH (05:40)
[2019-01-15] MEDS: INSULIN ASPART [NOVOLOG] 3 ML PEN SC SCH ×4 (07:55→20:38)
[2019-01-15] MEDS: QUETIAPINE 100 MG TAB PO SCH ×2 (08:46→20:39)
[2019-01-15] MEDS: DIAZEPAM 5 MG TAB PO SCH ×2 (08:46→20:38)
[2019-01-15] MEDS: BENZTROPINE 1 MG TAB PO SCH ×2 (08:46→20:39)
[2019-01-15] MEDS: DIVALPROEX SPRINKLE 125 MG CAP PO SCH ×2 (08:50→20:39)
[2019-01-15] MEDS: BALSAM PERU/CASTOR OIL 60 GM TUBE TOP SCH ×2 (08:51→20:40)
[2019-01-15] MEDS: CITALOPRAM 20 MG TAB PO SCH (11:05)
[2019-01-16] VITALS (14 sets, daily range): BP systolic 92–105; BP diastolic 47–68; PULSE 72–114; RESP 16–18
[2019-01-16] MEDS: PANTOPRAZOLE 40 MG INJ IV SCH (05:40)
[2019-01-16] MEDS: INSULIN ASPART [NOVOLOG] 3 ML PEN SC SCH ×4 (07:55→20:18)
[2019-01-16] MEDS: QUETIAPINE 100 MG TAB PO SCH ×2 (08:16→20:17)
[2019-01-16] MEDS: DIVALPROEX SPRINKLE 125 MG CAP PO SCH ×2 (08:16→20:17)
[2019-01-16] MEDS: DIAZEPAM 5 MG TAB PO SCH ×2 (08:16→20:17)
[2019-01-16] MEDS: BENZTROPINE 1 MG TAB PO SCH ×2 (08:16→20:17)
[2019-01-16] MEDS: CITALOPRAM 20 MG TAB PO SCH (08:16)
[2019-01-16] MEDS: BALSAM PERU/CASTOR OIL 60 GM TUBE TOP SCH ×2 (08:17→20:17)
[2019-01-17 05:00] VITALS: BP 103/68; PULSE 102; RESP 20
[2019-01-17] MEDS: PANTOPRAZOLE 40 MG INJ IV SCH (05:43)
[2019-01-17 07:24] VITALS: BP 107/67; PULSE 98; RESP 18
[2019-01-17] MEDS: DIVALPROEX SPRINKLE 125 MG CAP PO SCH ×2 (09:39→22:28)
[2019-01-17] MEDS: DIAZEPAM 5 MG TAB PO SCH ×2 (09:39→22:28)
[2019-01-17] MEDS: QUETIAPINE 100 MG TAB PO SCH ×2 (09:39→22:29)
[2019-01-17] MEDS: BENZTROPINE 1 MG TAB PO SCH ×2 (09:39→22:28)
[2019-01-17] MEDS: CITALOPRAM 20 MG TAB PO SCH (09:39)
[2019-01-17] MEDS: BALSAM PERU/CASTOR OIL 60 GM TUBE TOP SCH ×2 (09:40→21:00)
[2019-01-17 11:05] VITALS: BP 99/60; PULSE 96; RESP 18
[2019-01-17 15:09] VITALS: BP 92/57; PULSE 106; RESP 18
[2019-01-17] MEDS ORDERED: OXYCODONE/ACETAMINOPHEN (5/325) TAB PO PRN (16:00)
[2019-01-17 19:57] VITALS: BP 98/56; PULSE 103; RESP 20
[2019-01-17 23:28] VITALS: BP 104/69; PULSE 96; RESP 18
[2019-01-18 03:44] VITALS: BP 101/54; PULSE 92; RESP 18
[2019-01-18] MEDS: PANTOPRAZOLE (EC) 40 MG TAB PO SCH (06:24)
[2019-01-18 07:42] VITALS: BP 103/55; PULSE 70; RESP 18
[2019-01-18] MEDS: BALSAM PERU/CASTOR OIL 60 GM TUBE TOP SCH ×2 (08:31→22:09)
[2019-01-18] MEDS: BENZTROPINE 1 MG TAB PO SCH ×2 (08:31→22:10)
[2019-01-18] MEDS: DIVALPROEX SPRINKLE 125 MG CAP PO SCH ×2 (08:31→22:08)
[2019-01-18] MEDS: DIAZEPAM 5 MG TAB PO SCH ×2 (08:31→22:07)
[2019-01-18] MEDS: QUETIAPINE 100 MG TAB PO SCH ×2 (08:31→22:07)
[2019-01-18] MEDS: CITALOPRAM 20 MG TAB PO SCH (08:31)
[2019-01-18 12:30] VITALS: BP 95/52; PULSE 105; RESP 18
[2019-01-18] MEDS ORDERED: MAGNESIUM SULFATE 2 GM/50 ML 50 ML IVPB ONE (14:30)
[2019-01-18 15:37] VITALS: BP 102/53; PULSE 100; RESP 18
[2019-01-18] MEDS: MESALAMINE (SR) 250 MG CAP PO SCH ×2 (17:29→22:09)
[2019-01-18 20:17] VITALS: BP 94/54; PULSE 56; RESP 18
[2019-01-19 00:11] VITALS: BP 104/64; PULSE 97; RESP 18
[2019-01-19 04:28] VITALS: BP 108/72; PULSE 92; RESP 18
[2019-01-19] MEDS: PANTOPRAZOLE (EC) 40 MG TAB PO SCH (06:13)
[2019-01-19 07:29] VITALS: BP 98/63; PULSE 95; RESP 20
[2019-01-19] MEDS: BENZTROPINE 1 MG TAB PO SCH (10:08)
[2019-01-19] MEDS: CITALOPRAM 20 MG TAB PO SCH (10:08)
[2019-01-19] MEDS: QUETIAPINE 100 MG TAB PO SCH (10:09)
[2019-01-19] MEDS: DIVALPROEX SPRINKLE 125 MG CAP PO SCH (10:09)
[2019-01-19] MEDS: DIAZEPAM 5 MG TAB PO SCH (10:10)
[2019-01-19] MEDS: BALSAM PERU/CASTOR OIL 60 GM TUBE TOP SCH (11:10)
[2019-01-19] MEDS: MESALAMINE (SR) 250 MG CAP PO SCH ×3 (11:11→18:37)
[2019-01-19 11:53] VITALS: BP 95/61; PULSE 107; RESP 20
[2019-01-19 15:38] VITALS: BP 101/66; PULSE 110; RESP 20
== END 2019-01-19 20:35 | DRG 329 ==
LOC: E/R 12:35 → 6WM 17:30 → EDBEDREQSVC 12-28 14:13 → 6WM 12-28 15:35 → ICU 01-05 15:55 → TEL 01-10 21:25
PROVIDERS: ADMIT Internal Medicine; ATTEND Internal Medicine
PROC: 0DJD4ZZ Inspection of Lower Intestinal Tract, Percutaneous Endoscopic Approach (ICD-10-PCS; 2018-12-31)
PROC: 0DTN0ZZ Resection of Sigmoid Colon, Open Approach (ICD-10-PCS; 2018-12-31)
PROC: 0D1M0Z4 Bypass Descending Colon to Cutaneous, Open Approach (ICD-10-PCS; 2018-12-31)
PROC: 0D1B0Z4 Bypass Ileum to Cutaneous, Open Approach (ICD-10-PCS; principal; 2018-12-31 15:00)
PROC: 0WQFXZ2 Repair Abdominal Wall, Stoma, External Approach (ICD-10-PCS; 2019-01-05)
PROC: 0DBN0ZZ Excision of Sigmoid Colon, Open Approach (ICD-10-PCS; 2019-01-05)
PROC: 0D1N0Z4 Bypass Sigmoid Colon to Cutaneous, Open Approach (ICD-10-PCS; 2019-01-05)
PROC: 30233N1 Transfusion of Nonautologous Red Blood Cells into Peripheral Vein, Percutaneous Approach (ICD-10-PCS; 2019-01-07)
PROC: 5A1945Z Respiratory Ventilation, 24-96 Consecutive Hours (ICD-10-PCS; 2019-01-07)
PROC: 30233K1 Transfusion of Nonautologous Frozen Plasma into Peripheral Vein, Percutaneous Approach (ICD-10-PCS; 2019-01-08)
DX: K50.012 Crohn's disease of small intestine with intestinal obstruction (principal); J96.01 Acute respiratory failure with hypoxia; K55.019 Acute (reversible) ischemia of small intestine, extent unspecified; R65.21 Severe sepsis with septic shock; A41.9 Sepsis, unspecified organism; I97.711 Intraoperative cardiac arrest during other surgery; F84.0 Autistic disorder; N17.9 Acute kidney failure, unspecified; K92.2 Gastrointestinal hemorrhage, unspecified; E87.2 Acidosis; E87.1 Hypo-osmolality and hyponatremia; D62 Acute posthemorrhagic anemia; K56.50 Intestinal adhesions [bands], unspecified as to partial versus complete obstruction; K91.30 Postprocedural intestinal obstruction, unspecified as to partial versus complete; K56.0 Paralytic ileus; T81.49XA Infection following a procedure, other surgical site, initial encounter; E83.42 Hypomagnesemia; I20.9 Angina pectoris, unspecified; E86.0 Dehydration; R14.0 Abdominal distension (gaseous); F32.9 Major depressive disorder, single episode, unspecified; Z53.31 Laparoscopic surgical procedure converted to open procedure; K56.41 Fecal impaction; I95.9 Hypotension, unspecified; D75.1 Secondary polycythemia; I73.9 Peripheral vascular disease, unspecified; D64.9 Anemia, unspecified; R00.1 Bradycardia, unspecified; B96.20 Unspecified Escherichia coli [E. coli] as the cause of diseases classified elsewhere; B96.89 Other specified bacterial agents as the cause of diseases classified elsewhere
CPT/HCPCS: 36415; 36430; 36573; 36600; 71045; 74018; 74176; 74177; 74250; 76705; 76775; 80048; 80053; 80069; 80076; 80202; 81001; 81003; 82306; 82550; 82553; 82570; 82607; 82652; 82803; 82962; 83520; 83605; 83690; 83735; 84100; 84134; 84145; 84155; 84295; 84300; 84443; 84478; 84484; 85014; 85018; 85025; 85610; 85651; 85730; 86021; 86140; 86850; 86900; 86901; 86920; 87070; 87075; 87081; 87086; 87102; 88304; 88305; 92526; 92610; 93005; 93306; 93922; 93926; 93970; 94002; 94003; 94770; 96374; 96375; 97110; 97116; 97162; 97164; 97165; 97167; 97530; 97535; C9113; J0131; J1170; J1644; J1815; J1940; J2060; J2175; J2185; J2250; J2270; J2370; J2405; J2543; J2710; J2765; J2795; J2920; J3010; J3370; J3475; J3480; J7030; J7040; J7042; J7050; J7070; J7120; J7512; P9016; P9045; P9047; P9059; Q9967